=== PATIENT | female | born 1930 | race Caucasian/White ===

== ENCOUNTER → 2016-06-20 | Outpatient (REF) | payer MEDICARE ==
[~2016-06-20] MED LIST: AMIT25TA9 PO; ESTR42.52 VG; HALO50CR2 TP; HYDR-33 PO; HYDR-3702 PO; METH4TAB27 PO; NAPR220C11 PO; OMG1KC PO; SOLI5TAB2 PO; TRM50T PO
[2016-06-20 15:03] LABS: ALBUMIN 3.8 g/dL (3.4-5.0); ANION GAP 12.9 MEQ/L (3-15); CALCULATED IONIZED CALCIUM 4.6 mg/dL (3.8-4.6); TOTAL PROTEIN 6.4 g/dL (6.4-8.5)
== END ==
LOC: LAB 14:24
PROVIDERS: ATTEND Family Medicine
DX: R74.8 Abnormal levels of other serum enzymes (principal); E83.52 Hypercalcemia
CPT/HCPCS: 80053; 82306; 82977; 83970